=== PATIENT | male | born 1975 | race Caucasian/White ===

== ENCOUNTER 2025-02-09 00:54 | Inpatient (IN) ==
--- NOTE | 2025-02-09 01:10 | Emergency Department Note ---
Impression & Plan Altered mental state, Rhabdomyolysis, Elevated LFTs, Leukocytosis ED Provider Note CHIEF COMPLAINT: Confusion HISTORY OF PRESENTING ILLNESS: The patient is a 49-year-old male who arrives to the emergency department for evaluation of confusion. Patient was brought in by [facility], after he was found on room [address], walking down the middle of the road. PSP reports when they approached the patient, he was unaware of where he was, and how he got there. He reports he has not had anything to eat or drink over the last day. He states he was recently seen at [facility], however he is unaware why. PSP reports the patient believes that he was dropped off by a friend, however he is unsure. Patient reports no complaints upon arrival, he is able to answer questions, however slightly confused. His vital signs are currently stable, he is afebrile. REVIEW OF SYSTEMS: See HPI for pertinent positives and pertinent negatives. ALLERGIES: See below MEDICATIONS: See below PAST MEDICAL HISTORY: See below PHYSICAL EXAM: VITALS: Vitals are noted on the nurse's note and reviewed by myself. Vital signs stable. GENERAL: 49-year-old male, in no acute distress, nondiaphoretic. SKIN: The skin was without rashes, erythema, edema, or bruising. HEAD: Normocephalic atraumatic. EARS: External auditory canals clear, tympanic membranes pearly springer without erythema or effusion bilaterally. EYES: Pupils equal round and reactive to light and accommodation. Conjunctivae without injection, sclerae without icterus. Extraocular movements intact. No hemotympanum. NOSE: Patent, turbinates without inflammation or discharge. No sinus tenderness. No septal hematoma. MOUTH: Mucous membranes moist. Tonsils are not enlarged. Pharynx without erythema or exudate. Uvula midline. Airway patent. Tongue does not deviate. NECK: Supple without nuchal rigidity. No lymphadenopathy. Cervical spine is nontender. No JVD. HEART: Regular rate and rhythm without murmurs gallops or rubs. LUNGS: Clear to auscultation bilaterally without wheezes, rales or rhonchi. No retractions or accessory muscle use. ABDOMEN: Positive bowel sounds x 4. Soft, nontender, without masses or organomegaly. Taylor sign negative. No guarding or rebound tenderness. MUSCULOSKELETAL: No muscle atrophy, erythema, or edema noted. Normal gait. Strength 5/5 throughout. NEURO: Patient was alert and oriented to person place and time. No focal neurological deficits. DIFFERENTIAL DIAGNOSIS: Infection, hypoglycemia, electrolyte abnormalities, overdose, toxicologic, cardiac sources, intracerebral event, neurologic, trauma, as well as other pathologies. ED COURSE AND MEDICAL DECISION MAKING: HISTORY FROM INDEPENDENT HISTORIAN: PSP MEDICATIONS GIVEN: 1 L NSS bolus MONITOR: Continuous residential monitor: Order was placed for continuous residential monitor. Patient was placed on the residential monitor and continuous pulse ox. Patient was noted to be in normal sinus rhythm at an initial rate of 83 bpm per my interpretation. EKG: EKG was interpreted by myself as normal sinus rhythm at a rate of 81 bpm, no ST elevation or depression. No previous for comparison.. INTERPRETATION OF LABS: I interpreted the labs with full lab results as below in the lab section of this note. Pertinent lab results discussed in the MDM section below. INTERPRETATION OF IMAGING: Imaging studies were interpreted by myself and read by radiology as per the imaging section of this note. CHRONIC MEDICAL/SOCIAL CONDITIONS AFFECTING CARE: History of TBI MDM SUMMARY: The patient is a, 49-year-old male who arrives to the emergency department for evaluation of the above-stated complaint. Saline lock was established, lab values were obtained. CBC shows leukocytosis 15.45, no anemia. Lactate negative, ammonia negative. CMP shows elevated anion gap 16, BUN 37, creatinine 0.88. Glucose 138. AST 100, ALT 53, alkaline phosphatase 47. Total CK at 97, Pro-Charlie 0.09, TSH within normal limits. Tickborne panel pending. Initial Lyme negative. Urinalysis shows 2+ ketones, trace blood, no concerning signs of infection. UDS negative. Ethyl alcohol negative. Upper respiratory viral panel negative. CT, CTA imaging of the head as well as CTA imaging of the neck was obtained which per my interpretation shows no ICH, fracture, aneurysm, dissection, or concerning stenosis. Or other concerning findings. Patient vital signs stable upon arrival, during his stay, as he began to rest, he was requiring supplemental O2. It does appear the patient has rhabdomyolysis, as well as leukocytosis, and elevated LFTs. He was provided IV fluids. He has remained altered during his stay. I spoke with him regarding admission, which he was agreeable to. He states he does not currently feel well enough to go home. Patient was presented for admission to Dr. Arias from the [facility] hospitalist group. Dr. Arias agreed to evaluate and accept the patient under his care. Please refer to his documentation for further patient treatment. DIAGNOSIS: Altered mental status, leukocytosis, elevated LFTs, rhabdomyolysis The chart was completed utilizing [employer] Speech voice recognition software. Grammatical errors, random word insertions, pronoun errors, and incomplete sentences are an occasional consequence of this system due to software limitations, ambient noise, and hardware issues. Any formal questions or concerns about the content, text, or information contained within the body of this dictation should be directly addressed to the provider for clarification. Past Med/Surg History Problem List (Updated 02/14/25 @ 09:46 by MARIETTA Edward) Hypophosphatemia Leukocytosis (Acute) Elevated LFTs (Acute) Rhabdomyolysis (Acute) History of seizures Type 2 diabetes mellitus Altered mental state (Acute) Social History Smoking Status: Current every day smoker Tobacco Type: Cigarettes Second Hand Exposure: No; Do You Dip or Chew Tobacco: No; Hx Alcohol Use: No Hx Substance Use: Yes Last Used Substance: Unknown Preferred Language: Icelandic Communication Ability: Effective Manufacturing Group Leader Required: No Beliefs That Will Affect Care: None Current Living Situation: Homeless Feels Safe at Home: Yes Allergies Allergies Allergy/AdvReac Type Severity Reaction Status Date / Time No Known Allergies Allergy Verified 02/09/25 01:52 Home Meds Home Medications Medication Instructions Recorded Confirmed metformin 500 mg tablet 500 mg PO BIDM 02/09/25 02/09/25 Previous Rx's Medication Instructions Recorded gabapentin 600 mg tablet 600 mg PO TID #90 tabs 02/12/25 levetiracetam 500 mg tablet 500 mg PO BID #60 tabs 02/12/25 (Keppra) [id number] acid 0.4 1 tab PO QAM #30 tabs 02/12/25 mg-lycopene 300 mcg-lutein 250 mcg tablet ([employer]) thiamine HCl (vitamin B1) 100 mg 100 mg PO QAM #30 tabs 02/12/25 tablet Results & Data (ED) Vital Signs Vital Signs - 24 hr 02/09/25 01:03 Temperature 36.4 C L Temperature Source Oral Pulse Rate 83 Pulse Rhythm Regular Pulse Strength Normal Respiratory Rate 15 Respiratory Effort / Characteristics Non-Labored Spontaneous Respiratory Depth Normal Respiratory Pattern Regular Blood Pressure 145/89 H Blood Pressure Mean 107 Pulse Oximetry 100 Oxygen Delivery Method Room Air Sepsis Recent Fever Within 48 Hours No Sepsis New/Unexplained Change in Mental Status No Sepsis Action Taken by Nursing No Action Required Home Medications Current Medication List: was personally reviewed by me Laboratory Data Attestation: I reviewed the patient's lab results. 02/10/25 06:55 02/12/25 05:18 Lab Results 02/09/25 02/09/25 02/09/25 Range/Units 01:17 02:22 05:00 WBC 15.45 H (4.8-10.8) K/ul RBC 4.62 L (4.70-6.10) M/uL Hgb 14.1 (14.0-18.0) g/dL Hct 40.3 L (42.0-52.0) % MCV 87.2 (80.0-100.0) fL MCH 30.5 (25.0-34.0) pg MCHC 35.0 (32.0-36.0) g/dL RDW Std Deviation 41.5 (36.4-46.3) fL RDW Coeff of Vern 13.2 (11.5-14.5) % Plt Count 245 (130-400) K/uL MPV 9.0 L (9.4-12.4) fL Immature Gran % (Auto) 0.3 % Neut % (Auto) 78.0 % Lymph % (Auto) 16.3 % [place] % (Auto) 5.2 % Eos % (Auto) 0.1 % Baso % (Auto) 0.1 % Neut # (Auto) 12.03 H (1.40-6.50) K/uL Lymph # (Auto) 2.52 (1.20-3.40) K/uL [place] # (Auto) 0.81 H (0.11-0.59) K/uL Eos # (Auto) 0.02 (0.00-0.50) K/uL Baso # (Auto) 0.02 (0.00-0.20) K/uL Immature Gran # (Auto) 0.05 (0.01-0.20) K/uL VBG pH (7.36-7.41) VBG pCO2 (38-50) mmHg VBG pO2 mmHg VBG HCO3 mmol/L VBG O2 Saturation % VBG Base Excess mEq/L Sodium 133 L (136-145) mmol/L Potassium 4.6 (3.5-5.1) mmol/L Chloride 96 L (98-107) mmol/L Carbon Dioxide 21 (21-32) mmol/L Anion Gap 16 H (3-11) BUN 37 H (6-23) mg/dl Creatinine 0.88 (0.6-1.4) mg/dl Est Cr Clr Drug Dosing 98.3 ml/min eGFR 106.07 BUN/Creatinine Ratio 42.0 H (10-20) Glucose 114 H (70-99(Fasting)) mg/dl POC Glucose (70-99) mg/dl Estimat Average Glucose mg/dl Hemoglobin A1c (4.5-5.6) % Osmolality (280-300) mOsm/kg Lactate 1.0 (0.4-2.0) mmol/L Calcium 9.7 (8.6-10.3) mg/dl Phosphorus (2.5-4.9) mg/dl Magnesium (1.7-2.4) mg/dl Total Bilirubin 1.2 H (0.2-1.0) mg/dl AST 100 H (13-39) U/L ALT 53 H (7-52) U/L Alkaline Phosphatase 47 (34-104) U/L Ammonia 37.0 (18-72) umol/L Total Creatine Kinase (30-223) U/L Total Protein 8.7 H (6.0-8.3) gm/dl Albumin 4.5 (3.4-5.0) gm/dl Globulin 4.2 H (2.5-4.0) gm/dl Albumin/Globulin Ratio 1.1 (0.9-2) Procalcitonin (0-0.5) ng/ml TSH (0.300-4.500) uIu/ml Urine Color Yellow Urine Appearance Clear (Clear) Urine pH 5.0 (4.5-7.5) Ur Specific [place] 1.020 (1.000-1.030) Urine Protein 1+ H (Negative) Urine Glucose (UA) Negative (Negative) Urine Ketones 2+ H (Negative) Urine Blood Trace H (Negative) Urine Nitrite Negative (Negative) Urine Bilirubin Negative (Negative) Urine Urobilinogen Negative (Negative) Ur Leukocyte Esterase Negative (Negative) Urine WBC (Auto) 0-5 (0-5) /hpf Urine RBC (Auto) 0-2 (0-2) /hpf U Hyaline Cast (Auto) 3-5 H (0-2) /lpf U Epithel Cells (Auto) 0-2 (0-2) /hpf Urine Bacteria (Auto) None Seen (None Seen) Urine Comment Urine Opiates Screen Neg (Neg) Ur Methadone, Qual Neg (Neg) Urine Fentanyl Screen Neg (Neg) Urine Barbiturates Neg (Neg) Ur Phencyclidine (PCP) Neg (Neg) U Amphetamin/Meth Scrn Neg (Neg) MDMA (Ecstasy) Screen Neg (Neg) U Benzodiazepines Scrn Neg (Neg) Ur Cocaine Metabolite Neg (Neg) U Marijuana (THC) Screen Neg (Neg) Ethyl Alcohol mg/dL < 10.0 (<10.0) mg/dl Adenovirus (PCR) Not Detected (NotDetected) Anaplasma Smear A. phagocytophilum DNA (Negative) Babesia Smear Babesia microti DNA PCR (Not Detected) B. pertussis DNA (PCR) Not Detected (NotDetected) B.parapertussis DNA PCR Not Detected (NotDetected) Lyme Disease Screen (Negative) C. pneumoniae DNA (PCR) Not Detected (NotDetected) Coronavirus OC43 (PCR) Not Detected (NotDetected) Coronavirus HKU1 (PCR) Not Detected (NotDetected) Coronavirus 229E (PCR) Not Detected (NotDetected) SARS-CoV-2 (PCR) Not Detected (NotDetected) Coronavirus NL63 (PCR) Not Detected (NotDetected) Ehrlichia DNA (PCR) (Negative) Human Metapneumovir PCR Not Detected (NotDetected) Influenza Type A (PCR) Not Detected (NotDetected) Influenza Type B (PCR) Not Detected (NotDetected) M. pneumoniae (PCR) Not Detected (NotDetected) Parainfluenza 1 (PCR) Not Detected (NotDetected) Parainfluenza 2 (PCR) Not Detected (NotDetected) Parainfluenza 3 (PCR) Not Detected (NotDetected) Parainfluenza 4 (PCR) Not Detected (NotDetected) RSV (PCR) Not Detected (NotDetected) Entero/Rhino (PCR) Not Detected (NotDetected) 02/09/25 02/09/25 02/09/25 Range/Units 07:03 07:45 10:12 WBC (4.8-10.8) K/ul RBC (4.70-6.10) M/uL Hgb (14.0-18.0) g/dL Hct (42.0-52.0) % MCV (80.0-100.0) fL MCH (25.0-34.0) pg MCHC (32.0-36.0) g/dL RDW Std Deviation (36.4-46.3) fL RDW Coeff of Vern (11.5-14.5) % Plt Count (130-400) K/uL MPV (9.4-12.4) fL Immature Gran % (Auto) % Neut % (Auto) % Lymph % (Auto) % [place] % (Auto) % Eos % (Auto) % Baso % (Auto) % Neut # (Auto) (1.40-6.50) K/uL Lymph # (Auto) (1.20-3.40) K/uL [place] # (Auto) (0.11-0.59) K/uL Eos # (Auto) (0.00-0.50) K/uL Baso # (Auto) (0.00-0.20) K/uL Immature Gran # (Auto) (0.01-0.20) K/uL VBG pH (7.36-7.41) VBG pCO2 (38-50) mmHg VBG pO2 mmHg VBG HCO3 mmol/L VBG O2 Saturation % VBG Base Excess mEq/L Sodium (136-145) mmol/L Potassium (3.5-5.1) mmol/L Chloride (98-107) mmol/L Carbon Dioxide (21-32) mmol/L Anion Gap (3-11) BUN (6-23) mg/dl Creatinine (0.6-1.4) mg/dl Est Cr Clr Drug Dosing ml/min eGFR BUN/Creatinine Ratio (10-20) Glucose (70-99(Fasting)) mg/dl POC Glucose 138 H (70-99) mg/dl Estimat Average Glucose mg/dl Hemoglobin A1c (4.5-5.6) % Osmolality 291 (280-300) mOsm/kg Lactate (0.4-2.0) mmol/L Calcium (8.6-10.3) mg/dl Phosphorus (2.5-4.9) mg/dl Magnesium (1.7-2.4) mg/dl Total Bilirubin (0.2-1.0) mg/dl AST (13-39) U/L ALT (7-52) U/L Alkaline Phosphatase (34-104) U/L Ammonia (18-72) umol/L Total Creatine Kinase (30-223) U/L Total Protein (6.0-8.3) gm/dl Albumin (3.4-5.0) gm/dl Globulin (2.5-4.0) gm/dl Albumin/Globulin Ratio (0.9-2) Procalcitonin 0.09 (0-0.5) ng/ml TSH (0.300-4.500) uIu/ml Urine Color Urine Appearance (Clear) Urine pH (4.5-7.5) Ur Specific [place] (1.000-1.030) Urine Protein (Negative) Urine Glucose (UA) (Negative) Urine Ketones (Negative) Urine Blood (Negative) Urine Nitrite (Negative) Urine Bilirubin (Negative) Urine Urobilinogen (Negative) Ur Leukocyte Esterase (Negative) Urine WBC (Auto) (0-5) /hpf Urine RBC (Auto) (0-2) /hpf U Hyaline Cast (Auto) (0-2) /lpf U Epithel Cells (Auto) (0-2) /hpf Urine Bacteria (Auto) (None Seen) Urine Comment Urine Opiates Screen (Neg) Ur Methadone, Qual (Neg) Urine Fentanyl Screen (Neg) Urine Barbiturates (Neg) Ur Phencyclidine (PCP) (Neg) U Amphetamin/Meth Scrn (Neg) MDMA (Ecstasy) Screen (Neg) U Benzodiazepines Scrn (Neg) Ur Cocaine Metabolite (Neg) U Marijuana (THC) Screen (Neg) Ethyl Alcohol mg/dL (<10.0) mg/dl Adenovirus (PCR) (NotDetected) Anaplasma Smear See Comment A. phagocytophilum DNA Negative (Negative) Babesia Smear See Comment Babesia microti DNA PCR Not Detected (Not Detected) B. pertussis DNA (PCR) (NotDetected) B.parapertussis DNA PCR (NotDetected) Lyme Disease Screen Negative (Negative) C. pneumoniae DNA (PCR) (NotDetected) Coronavirus OC43 (PCR) (NotDetected) Coronavirus HKU1 (PCR) (NotDetected) Coronavirus 229E (PCR) (NotDetected) SARS-CoV-2 (PCR) (NotDetected) Coronavirus NL63 (PCR) (NotDetected) E[place]lich[place] DNA (PCR) Negative (Negative) Human Metapneumovir PCR (NotDetected) Influenza Type A (PCR) (NotDetected) Influenza Type B (PCR) (NotDetected) M. pneumoniae (PCR) (NotDetected) Parainfluenza 1 (PCR) (NotDetected) Parainfluenza 2 (PCR) (NotDetected) Parainfluenza 3 (PCR) (NotDetected) Parainfluenza 4 (PCR) (NotDetected) RSV (PCR) (NotDetected) Entero/Rhino (PCR) (NotDetected) 02/09/25 02/09/25 02/09/25 Range/Units 10:51 12:01 16:43 WBC (4.8-10.8) K/ul RBC (4.70-6.10) M/uL Hgb (14.0-18.0) g/dL Hct (42.0-52.0) % MCV (80.0-100.0) fL MCH (25.0-34.0) pg MCHC (32.0-36.0) g/dL RDW Std Deviation (36.4-46.3) fL RDW Coeff of Vern (11.5-14.5) % Plt Count (130-400) K/uL MPV (9.4-12.4) fL Immature Gran % (Auto) % Neut % (Auto) % Lymph % (Auto) % [place] % (Auto) % Eos % (Auto) % Baso % (Auto) % Neut # (Auto) (1.40-6.50) K/uL Lymph # (Auto) (1.20-3.40) K/uL [place] # (Auto) (0.11-0.59) K/uL Eos # (Auto) (0.00-0.50) K/uL Baso # (Auto) (0.00-0.20) K/uL Immature Gran # (Auto) (0.01-0.20) K/uL VBG pH 7.40 (7.36-7.41) VBG pCO2 41 (38-50) mmHg VBG pO2 65 mmHg VBG HCO3 25 mmol/L VBG O2 Saturation 94.2 % VBG Base Excess 0.5 mEq/L Sodium (136-145) mmol/L Potassium (3.5-5.1) mmol/L Chloride (98-107) mmol/L Carbon Dioxide (21-32) mmol/L Anion Gap (3-11) BUN (6-23) mg/dl Creatinine (0.6-1.4) mg/dl Est Cr Clr Drug Dosing ml/min eGFR BUN/Creatinine Ratio (10-20) Glucose (70-99(Fasting)) mg/dl POC Glucose 144 H 121 H (70-99) mg/dl Estimat Average Glucose mg/dl Hemoglobin A1c (4.5-5.6) % Osmolality (280-300) mOsm/kg Lactate (0.4-2.0) mmol/L Calcium (8.6-10.3) mg/dl Phosphorus 2.3 L (2.5-4.9) mg/dl Magnesium 1.9 (1.7-2.4) mg/dl Total Bilirubin (0.2-1.0) mg/dl AST (13-39) U/L ALT (7-52) U/L Alkaline Phosphatase (34-104) U/L Ammonia (18-72) umol/L Total Creatine Kinase 897 H (30-223) U/L Total Protein (6.0-8.3) gm/dl Albumin (3.4-5.0) gm/dl Globulin (2.5-4.0) gm/dl Albumin/Globulin Ratio (0.9-2) Procalcitonin (0-0.5) ng/ml TSH 0.786 (0.300-4.500) uIu/ml Urine Color Urine Appearance (Clear) Urine pH (4.5-7.5) Ur Specific [place] (1.000-1.030) Urine Protein (Negative) Urine Glucose (UA) (Negative) Urine Ketones (Negative) Urine Blood (Negative) Urine Nitrite (Negative) Urine Bilirubin (Negative) Urine Urobilinogen (Negative) Ur Leukocyte Esterase (Negative) Urine WBC (Auto) (0-5) /hpf Urine RBC (Auto) (0-2) /hpf U Hyaline Cast (Auto) (0-2) /lpf U Epithel Cells (Auto) (0-2) /hpf Urine Bacteria (Auto) (None Seen) Urine Comment Urine Opiates Screen (Neg) Ur Methadone, Qual (Neg) Urine Fentanyl Screen (Neg) Urine Barbiturates (Neg) Ur Phencyclidine (PCP) (Neg) U Amphetamin/Meth Scrn (Neg) MDMA (Ecstasy) Screen (Neg) U Benzodiazepines Scrn (Neg) Ur Cocaine Metabolite (Neg) U Marijuana (THC) Screen (Neg) Ethyl Alcohol mg/dL (<10.0) mg/dl Adenovirus (PCR) (NotDetected) Anaplasma Smear A. phagocytophilum DNA (Negative) Babesia Smear Babesia microti DNA PCR (Not Detected) B. pertussis DNA (PCR) (NotDetected) B.parapertussis DNA PCR (NotDetected) Lyme Disease Screen (Negative) C. pneumoniae DNA (PCR) (NotDetected) Coronavirus OC43 (PCR) (NotDetected) Coronavirus HKU1 (PCR) (NotDetected) Coronavirus 229E (PCR) (NotDetected) SARS-CoV-2 (PCR) (NotDetected) Coronavirus NL63 (PCR) (NotDetected) [place] DNA (PCR) (Negative) Human Metapneumovir PCR (NotDetected) Influenza Type A (PCR) (NotDetected) Influenza Type B (PCR) (NotDetected) M. pneumoniae (PCR) (NotDetected) Parainfluenza 1 (PCR) (NotDetected) Parainfluenza 2 (PCR) (NotDetected) Parainfluenza 3 (PCR) (NotDetected) Parainfluenza 4 (PCR) (NotDetected) RSV (PCR) (NotDetected) Entero/Rhino (PCR) (NotDetected) 02/09/25 02/10/25 02/10/25 Range/Units 20:18 06:55 08:00 WBC 7.08 (4.8-10.8) K/ul RBC 3.83 L (4.70-6.10) M/uL Hgb 11.9 L (14.0-18.0) g/dL Hct 33.5 L (42.0-52.0) % MCV 87.5 (80.0-100.0) fL MCH 31.1 (25.0-34.0) pg MCHC 35.5 (32.0-36.0) g/dL RDW Std Deviation 41.0 (36.4-46.3) fL RDW Coeff of Vern 13.0 (11.5-14.5) % Plt Count 188 (130-400) K/uL MPV 9.3 L (9.4-12.4) fL Immature Gran % (Auto) 0.1 % Neut % (Auto) 49.7 % Lymph % (Auto) 42.7 % [place] % (Auto) 6.8 % Eos % (Auto) 0.4 % Baso % (Auto) 0.3 % Neut # (Auto) 3.52 (1.40-6.50) K/uL Lymph # (Auto) 3.02 (1.20-3.40) K/uL [place] # (Auto) 0.48 (0.11-0.59) K/uL Eos # (Auto) 0.03 (0.00-0.50) K/uL Baso # (Auto) 0.02 (0.00-0.20) K/uL Immature Gran # (Auto) 0.01 (0.01-0.20) K/uL VBG pH (7.36-7.41) VBG pCO2 (38-50) mmHg VBG pO2 mmHg VBG HCO3 mmol/L VBG O2 Saturation % VBG Base Excess mEq/L Sodium 138 (136-145) mmol/L Potassium 3.7 (3.5-5.1) mmol/L Chloride 106 (98-107) mmol/L Carbon Dioxide 27 (21-32) mmol/L Anion Gap 5 (3-11) BUN 20 (6-23) mg/dl Creatinine 0.59 L (0.6-1.4) mg/dl Est Cr Clr Drug Dosing 149.4 ml/min eGFR 119.68 BUN/Creatinine Ratio 33.9 H (10-20) Glucose 194 H (70-99(Fasting)) mg/dl POC Glucose 149 H 232 H (70-99) mg/dl Estimat Average Glucose 171 mg/dl Hemoglobin A1c 7.6 H (4.5-5.6) % Osmolality (280-300) mOsm/kg Lactate (0.4-2.0) mmol/L Calcium 8.6 (8.6-10.3) mg/dl Phosphorus 2.1 L (2.5-4.9) mg/dl Magnesium 1.8 (1.7-2.4) mg/dl Total Bilirubin 0.3 D (0.2-1.0) mg/dl AST 46 H (13-39) U/L ALT 33 (7-52) U/L Alkaline Phosphatase 39 (34-104) U/L Ammonia (18-72) umol/L Total Creatine Kinase 286 H (30-223) U/L Total Protein 6.3 D (6.0-8.3) gm/dl Albumin 3.2 L (3.4-5.0) gm/dl Globulin 3.1 (2.5-4.0) gm/dl Albumin/Globulin Ratio 1.0 (0.9-2) Procalcitonin (0-0.5) ng/ml TSH (0.300-4.500) uIu/ml Urine Color Urine Appearance (Clear) Urine pH (4.5-7.5) Ur Specific [place] (1.000-1.030) Urine Protein (Negative) Urine Glucose (UA) (Negative) Urine Ketones (Negative) Urine Blood (Negative) Urine Nitrite (Negative) Urine Bilirubin (Negative) Urine Urobilinogen (Negative) Ur Leukocyte Esterase (Negative) Urine WBC (Auto) (0-5) /hpf Urine RBC (Auto) (0-2) /hpf U Hyaline Cast (Auto) (0-2) /lpf U Epithel Cells (Auto) (0-2) /hpf Urine Bacteria (Auto) (None Seen) Urine Comment Urine Opiates Screen (Neg) Ur Methadone, Qual (Neg) Urine Fentanyl Screen (Neg) Urine Barbiturates (Neg) Ur Phencyclidine (PCP) (Neg) U Amphetamin/Meth Scrn (Neg) MDMA (Ecstasy) Screen (Neg) U Benzodiazepines Scrn (Neg) Ur Cocaine Metabolite (Neg) U Marijuana (THC) Screen (Neg) Ethyl Alcohol mg/dL (<10.0) mg/dl Adenovirus (PCR) (NotDetected) Anaplasma Smear A. phagocytophilum DNA (Negative) Babesia Smear Babesia microti DNA PCR (Not Detected) B. pertussis DNA (PCR) (NotDetected) B.parapertussis DNA PCR (NotDetected) Lyme Disease Screen (Negative) C. pneumoniae DNA (PCR) (NotDetected) Coronavirus OC43 (PCR) (NotDetected) Coronavirus HKU1 (PCR) (NotDetected) Coronavirus 229E (PCR) (NotDetected) SARS-CoV-2 (PCR) (NotDetected) Coronavirus NL63 (PCR) (NotDetected) [place] DNA (PCR) (Negative) Human Metapneumovir PCR (NotDetected) Influenza Type A (PCR) (NotDetected) Influenza Type B (PCR) (NotDetected) M. pneumoniae (PCR) (NotDetected) Parainfluenza 1 (PCR) (NotDetected) Parainfluenza 2 (PCR) (NotDetected) Parainfluenza 3 (PCR) (NotDetected) Parainfluenza 4 (PCR) (NotDetected) RSV (PCR) (NotDetected) Entero/Rhino (PCR) (NotDetected) 02/10/25 Range/Units 12:33 WBC (4.8-10.8) K/ul RBC (4.70-6.10) M/uL Hgb (14.0-18.0) g/dL Hct (42.0-52.0) % MCV (80.0-100.0) fL MCH (25.0-34.0) pg MCHC (32.0-36.0) g/dL RDW Std Deviation (36.4-46.3) fL RDW Coeff of Vern (11.5-14.5) % Plt Count (130-400) K/uL MPV (9.4-12.4) fL Immature Gran % (Auto) % Neut % (Auto) % Lymph % (Auto) % [place] % (Auto) % Eos % (Auto) % Baso % (Auto) % Neut # (Auto) (1.40-6.50) K/uL Lymph # (Auto) (1.20-3.40) K/uL [place] # (Auto) (0.11-0.59) K/uL Eos # (Auto) (0.00-0.50) K/uL Baso # (Auto) (0.00-0.20) K/uL Immature Gran # (Auto) (0.01-0.20) K/uL VBG pH (7.36-7.41) VBG pCO2 (38-50) mmHg VBG pO2 mmHg VBG HCO3 mmol/L VBG O2 Saturation % VBG Base Excess mEq/L Sodium (136-145) mmol/L Potassium (3.5-5.1) mmol/L Chloride (98-107) mmol/L Carbon Dioxide (21-32) mmol/L Anion Gap (3-11) BUN (6-23) mg/dl Creatinine (0.6-1.4) mg/dl Est Cr Clr Drug Dosing ml/min eGFR BUN/Creatinine Ratio (10-20) Glucose (70-99(Fasting)) mg/dl POC Glucose 103 H (70-99) mg/dl Estimat Average Glucose mg/dl Hemoglobin A1c (4.5-5.6) % Osmolality (280-300) mOsm/kg Lactate (0.4-2.0) mmol/L Calcium (8.6-10.3) mg/dl Phosphorus (2.5-4.9) mg/dl Magnesium (1.7-2.4) mg/dl Total Bilirubin (0.2-1.0) mg/dl AST (13-39) U/L ALT (7-52) U/L Alkaline Phosphatase (34-104) U/L Ammonia (18-72) umol/L Total Creatine Kinase (30-223) U/L Total Protein (6.0-8.3) gm/dl Albumin (3.4-5.0) gm/dl Globulin (2.5-4.0) gm/dl Albumin/Globulin Ratio (0.9-2) Procalcitonin (0-0.5) ng/ml TSH (0.300-4.500) uIu/ml Urine Color Urine Appearance (Clear) Urine pH (4.5-7.5) Ur Specific [place] (1.000-1.030) Urine Protein (Negative) Urine Glucose (UA) (Negative) Urine Ketones (Negative) Urine Blood (Negative) Urine Nitrite (Negative) Urine Bilirubin (Negative) Urine Urobilinogen (Negative) Ur Leukocyte Esterase (Negative) Urine WBC (Auto) (0-5) /hpf Urine RBC (Auto) (0-2) /hpf U Hyaline Cast (Auto) (0-2) /lpf U Epithel Cells (Auto) (0-2) /hpf Urine Bacteria (Auto) (None Seen) Urine Comment Urine Opiates Screen (Neg) Ur Methadone, Qual (Neg) Urine Fentanyl Screen (Neg) Urine Barbiturates (Neg) Ur Phencyclidine (PCP) (Neg) U Amphetamin/Meth Scrn (Neg) MDMA (Ecstasy) Screen (Neg) U Benzodiazepines Scrn (Neg) Ur Cocaine Metabolite (Neg) U Marijuana (THC) Screen (Neg) Ethyl Alcohol mg/dL (<10.0) mg/dl Adenovirus (PCR) (NotDetected) Anaplasma Smear A. phagocytophilum DNA (Negative) Babesia Smear Babesia microti DNA PCR (Not Detected) B. pertussis DNA (PCR) (NotDetected) B.parapertussis DNA PCR (NotDetected) Lyme Disease Screen (Negative) C. pneumoniae DNA (PCR) (NotDetected) Coronavirus OC43 (PCR) (NotDetected) Coronavirus HKU1 (PCR) (NotDetected) Coronavirus 229E (PCR) (NotDetected) SARS-CoV-2 (PCR) (NotDetected) Coronavirus NL63 (PCR) (NotDetected) Ehrlichia DNA (PCR) (Negative) Human Metapneumovir PCR (NotDetected) Influenza Type A (PCR) (NotDetected) Influenza Type B (PCR) (NotDetected) M. pneumoniae (PCR) (NotDetected) Parainfluenza 1 (PCR) (NotDetected) Parainfluenza 2 (PCR) (NotDetected) Parainfluenza 3 (PCR) (NotDetected) Parainfluenza 4 (PCR) (NotDetected) RSV (PCR) (NotDetected) Entero/Rhino (PCR) (NotDetected) Administered Medications Discontinued Medications Enoxaparin Sodium (Enoxaparin Inj 40 Mg/0.4 Ml Syr) 40 mg SQ QPM ROZINA Stop: 03/11/25 20:59 Last Admin: 02/11/25 20:20 Dose: 40 mg Documented By: [facility] Admin: 02/10/25 20:07 Dose: 40 mg Documented By: [facility] Admin: 02/09/25 21:33 Dose: 40 mg Documented By: [facility] Gabapentin (Gabapentin 600 Mg Tab) 600 mg PO TID ROZINA Stop: 03/12/25 13:59 Last Admin: 02/12/25 14:00 Dose: 600 mg Documented By: [facility] Admin: 02/12/25 08:28 Dose: 600 mg Documented By: [facility] Admin: 02/11/25 20:21 Dose: 600 mg Documented By: [facility] Admin: 02/11/25 13:27 Dose: 600 mg Documented By: [facility] Admin: 02/11/25 08:56 Dose: 600 mg Documented By: [facility] Admin: 02/10/25 20:06 Dose: 600 mg Documented By: [facility] Admin: 02/10/25 13:36 Dose: 600 mg Documented By: [facility] Gadobutrol (Gadobutrol 65ml Vial) 6.5 ml IV ONCE ONE Stop: 02/09/25 23:32 Last Admin: 02/09/25 23:31 Dose: 6.5 ml Documented By: HAYES Sodium Chloride (Nss) 1,000 mls @ 999 mls/hr IV .Q1H1M ONE Stop: 02/09/25 02:10 Last Infusion: 02/09/25 03:06 Dose: Infused Documented By: [facility] Admin: 02/09/25 01:40 Dose: 999 mls/hr Documented By: [facility] Sodium Chloride (Nss) 1,000 mls @ 999 mls/hr IV .Q1H1M ONE Stop: 02/09/25 04:18 Last Infusion: 02/09/25 04:24 Dose: Infused Documented By: [facility] Admin: 02/09/25 03:21 Dose: 999 mls/hr Documented By: [facility] Thiamine HCl 500 mg/ Sodium (Chloride) 55 mls @ 110 mls/hr IV Q8H ROZINA Stop: 02/11/25 10:29 Last Infusion: 02/11/25 09:50 Dose: Infused Documented By: [facility]STIC[facility] APPLICATOR Admin: 02/11/25 08:58 Dose: 110 mls/hr Documented By: PESTICIDE APPLICATOR Infusion: 02/11/25 03:40 Dose: Infused Documented By: Admin: 02/11/25 02:42 Dose: 110 mls/hr Documented By: Infusion: 02/10/25 19:33 Dose: Infused Documented By: Admin: 02/10/25 18:05 Dose: 110 mls/hr Documented By: Infusion: 02/10/25 10:00 Dose: Infused Documented By: Admin: 02/10/25 09:30 Dose: 110 mls/hr Documented By: Infusion: 02/10/25 02:04 Dose: Infused Documented By: mcl Admin: 02/10/25 01:28 Dose: 110 mls/hr Documented By: mcl Infusion: 02/09/25 18:40 Dose: Infused Documented By: Admin: 02/09/25 17:42 Dose: 110 mls/hr Documented By: CRISTÓBAL Thiamine HCl 500 mg/ Sodium (Chloride) 55 mls @ 210 mls/hr IV ONE ONE Stop: 02/09/25 09:35 Last Infusion: 02/09/25 12:27 Dose: Infused Documented By: Admin: 02/09/25 12:01 Dose: 210 mls/hr Documented By: CRISTÓBAL Dextrose/Lactated Ringer's (D5w And Lactated Ringers) 1,000 mls @ 125 mls/hr IV .Q8H ROZINA Stop: 02/12/25 10:22 Last Admin: 02/10/25 13:41 Dose: Not Given Documented By: Infusion: 02/10/25 13:41 Dose: Infused Documented By: Admin: 02/10/25 06:32 Dose: 125 mls/hr Documented By: mcl Infusion: 02/10/25 06:31 Dose: Infused Documented By: mcl Infusion: 02/10/25 00:01 Dose: 125 mls/hr Documented By: mcl Infusion: 02/09/25 23:34 Dose: 0 mls/hr Documented By: mcl Admin: 02/09/25 21:33 Dose: 125 mls/hr Documented By: mcl Infusion: 02/09/25 21:30 Dose: Infused Documented By: mcl Infusion: 02/09/25 18:39 Dose: 125 mls/hr Documented By: Infusion: 02/09/25 17:47 Dose: 0 mls/hr Documented By: Admin: 02/09/25 12:23 Dose: 125 mls/hr Documented By: CRISTÓBAL Insulin Aspart (Insulin Aspart Per Unit Charge) 0 units SC ACHS ROZINA Stop: 03/11/25 11:29 Last Admin: 02/12/25 13:58 Dose: Not Given Documented By: Admin: 02/12/25 08:34 Dose: 5 units Documented By: ELIA Co-signed By: NERY Admin: 02/11/25 20:15 Dose: Not Given Documented By: Admin: 02/11/25 17:40 Dose: 4 units Documented By: ELIA Co-signed By: reyes Admin: 02/11/25 13:26 Dose: 2 units Documented By: ELIA Co-signed By: PRASHANT Admin: 02/11/25 09:13 Dose: 6 units Documented By: ELIA Co-signed By: reyes Admin: 02/10/25 20:18 Dose: Not Given Documented By: MARY Co-signed By: cristopher Admin: 02/10/25 18:16 Dose: 4 units Documented By: ALEXANDRIA Co-signed By: ROSE Admin: 02/10/25 13:36 Dose: 4 units Documented By: ALEXANDRIA Co-signed By: JACKIE Admin: 02/10/25 09:29 Dose: 7 units Documented By: ALEXANDRIA Co-signed By: DORIAN Admin: 02/09/25 21:34 Dose: 1 units Documented By: zhen Co-signed By: VINH Admin: 02/09/25 17:56 Dose: 4 units Documented By: CRISTÓBAL Co-signed By: JACKIE Admin: 02/09/25 13:01 Dose: 4 units Documented By: CRISTÓBAL Co-signed By: JACKIE Insulin Glargine (Lantus Per Unit Charge) 10 units SQ QAM ROZINA Stop: 03/12/25 09:44 Last Admin: 02/10/25 09:34 Dose: 10 units Documented By: ALEXANDRIA Co-signed By: DORIAN Insulin Glargine (Lantus Per Unit Charge) 5 units SQ QAM ROZINA Stop: 03/13/25 08:59 Last Admin: 02/12/25 08:35 Dose: 5 units Documented By: ELIA Co-signed By: NERY Admin: 02/11/25 09:13 Dose: 5 units Documented By: ELIA Co-signed By: reyes Ioversol (Optiray 320 125ml) 112 ml IV ONCE ONE Stop: 02/09/25 08:21 Last Admin: 02/09/25 08:21 Dose: 112 ml Documented By: FANNY Levetiracetam (Levetiracetam 500 Mg/5 Ml Vial) 500 mg IV Q12H [facility] Stop: 03/11/25 14:59 Last Admin: 02/10/25 02:12 Dose: 500 mg Documented By: [facility] Admin: 02/09/25 16:05 Dose: 500 mg Documented By: lissa Levetiracetam (Levetiracetam 500 Mg Tab) 500 mg PO BID [facility] Stop: 03/12/25 20:59 Last Admin: 02/12/25 08:28 Dose: 500 mg Documented By: PESTIC[facility] APPLICATOR Admin: 02/11/25 20:21 Dose: 500 mg Documented By: [facility] Admin: 02/11/25 08:56 Dose: 500 mg Documented By: PESTICIDE APPLICATOR Admin: 02/10/25 20:06 Dose: 500 mg Documented By: [facility] Multivitamins/Minerals (Cerovite Adv Formula Tab) 1 tab PO QAM [facility] Stop: 03/12/25 13:14 Last Admin: 02/12/25 08:28 Dose: 1 tab Documented By: [facility] Admin: 02/11/25 08:56 Dose: 1 tab Documented By: [facility] Admin: 02/10/25 13:36 Dose: 1 tab Documented By: ALEXANDRIA Potassium Phosphate (Pot Phosphate Monobasic W/ Sod Tab) 1 tab PO QID [facility] Stop: 02/09/25 21:01 Last Admin: 02/09/25 21:34 Dose: 1 tab Documented By: [facility] Admin: 02/09/25 17:41 Dose: 1 tab Documented By: CRISTÓBAL Potassium Phosphate (Pot Phosphate Monobasic W/ Sod Tab) 1 tab PO QID [facility] Stop: 02/10/25 21:01 Last Admin: 02/10/25 20:06 Dose: 1 tab Documented By: [facility] Admin: 02/10/25 18:06 Dose: 1 tab Documented By: Admin: 02/10/25 13:36 Dose: 1 tab Documented By: ALEXANDRIA Thiamine HCl (Thiamine Hcl 100 Mg Tab) 100 mg PO QAM ROZINA Stop: 03/14/25 08:59 Last Admin: 02/12/25 08:28 Dose: 100 mg Documented By: PESTICIDE APPLICATOR Imaging Data Attestation: I personally reviewed and interpreted this imaging study as follows: Discharge Plan Visit Data Chief Complaint: Confusion Stated Complaint: PSP FOUND ON [address] IN [address],CONFUSED ED Provider: Ethel Francis ED Midlevel Provider: Socorro Faye Discharge Problem: Altered mental state, Rhabdomyolysis, Elevated LFTs, Leukocytosis Patient Disposition: Admitted As Inpatient Condition: Fair Discharge Instructions Interventions: ED Discharge Assessment Last Done: 02/09/25 09:30
[2025-02-09 01:31] LABS: Hematocrit (blood only) 40.3 % (42.0-52.0); Hemoglobin 14.1 g/dL (14.0-18.0); Immature Granulocytes # (auto) 0.05 K/uL (0.01-0.20); Immature Granulocytes % (auto) 0.3 %; Mean Corpuscular Hemoglobin 30.5 pg (25.0-34.0); Mean Corpuscular Volume 87.2 fL (80.0-100.0); Platelet Count 245 K/uL (130-400); RDW Standard Deviation 41.5 fL (36.4-46.3); Red Blood Count 4.62 M/uL (4.70-6.10); White Blood Count 15.45 K/ul (4.8-10.8)
[2025-02-09] MEDS: SODIUM CHLORIDE 0.9% 1,000 ML IV ONE ×2 (01:40→03:21)
[2025-02-09 01:55] LABS: Alanine Aminotransferase 53.0 U/L (7-52); Albumin Globulin Ratio 1.1 (0.9-2); Albumin Level 4.5 gm/dl (3.4-5.0); Alkaline Phosphatase 47.0 U/L (34-104); Anion Gap 16.0 (3-11); Bilirubin,Total 1.2 mg/dl (0.2-1.0); Blood Urea Nitrogen 37.0 mg/dl (6-23); Calcium 9.7 mg/dl (8.6-10.3); Carbon Dioxide 21.0 mmol/L (21-32); Chloride 96.0 mmol/L (98-107); Creatinine Clr Calc Pharmacy 98.3 ml/min; Globulin 4.2 gm/dl (2.5-4.0); Glucose 114.0 mg/dl (70-99(Fasting)); Potassium 4.6 mmol/L (3.5-5.1); Sodium 133.0 mmol/L (136-145); Total Protein 8.7 gm/dl (6.0-8.3)
--- NOTE | 2025-02-09 02:25 | CT Scan Report ---
EXAM: CT head/brain wo con CLINICAL HISTORY: confusion TECHNIQUE: Multiple axial images were obtained from the skull base to the vertex without contrast. The CT scan was performed according to ALARA (as low as reasonably achievable) principles. COMPARISON: None. FINDINGS: The brain demonstrates normal morphology, attenuation, and volume for age. There is no evidence of space-occupying lesion, hemorrhage, edema, mass effect, midline shift, extra-axial collection, or hydrocephalus. The ventricles, sulci, and basal cisterns are symmetric and normal in size and configuration. Martin-white matter differentiation is preserved. The visualized paranasal sinuses and mastoid air cells are well aerated. The orbital contents are within normal limits. The bony structures are intact. IMPRESSION: 1. No evidence of acute intracranial abnormality is demonstrated. Electronically signed by Rodrigo Noble 02-09-2025 02:24 AM
[2025-02-09 03:41] LABS: Chlamydia pneumoniae PCR Not Detected (NotDetected); Coronavirus 229E PCR Not Detected (NotDetected); Coronavirus CoV-2 (COVID19)PCR Not Detected (NotDetected); Coronavirus HKU1 PCR Not Detected (NotDetected); Coronavirus NL63 PCR Not Detected (NotDetected); Coronavirus OC43PCR Not Detected (NotDetected); Human Metapneumovirus PCR Not Detected (NotDetected); Parainfluenza Virus 1 PCR Not Detected (NotDetected); Parainfluenza Virus 2 PCR Not Detected (NotDetected); Parainfluenza Virus 3 PCR Not Detected (NotDetected); Parainfluenza Virus 4 PCR Not Detected (NotDetected); Respiratory Syncytial VirusPCR Not Detected (NotDetected); Rhinovirus/Enterovirus PCR Not Detected (NotDetected)
[2025-02-09 05:24] LABS: Appearance Urine Clear (Clear); Bacteria Urine Automated None Seen (None Seen); Epithelial Cell Urine Auto 0-2 /hpf (0-2); Glucose Urine UA Negative (Negative); RBC Urine Automated 0-2 /hpf (0-2); WBC Urine Automated 0-5 /hpf (0-5)
[2025-02-09 05:49] LABS: Amphetamines+Metham, Urine Neg (Neg); MDMA (Ecstacy), Urine Neg (Neg); Marijuana, Urine Neg (Neg)
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
[2025-02-09] MEDS: OPTIRAY 320 125ml IV ONE (08:21)
[2025-02-09 08:37] LABS: Procalcitonin 0.09 ng/ml (0-0.5)
--- NOTE | 2025-02-09 08:44 | CT Scan Report ---
CT angio head w con CLINICAL HISTORY: 49 years-old Male with TIA?. Acute strokelike symptoms COMPARISON STUDY: Head CT same day TECHNIQUE: Following the IV administration of 112 cc of Optiray, CT angiogram of the brain was perfor med from the skull base to the vertex. Images are reviewed in the axial, sagittal, and coronal planes . 3-D MIPS images are created and assessed. IV contrast was administered without complication. All me asurements were obtained according to NASCET criteria. A dose lowering technique was utilized adherin g to the principles of ALARA. CT DOSE: 516.56 mGy.cm FINDINGS: CT BRAIN: Dictated separately and several hours earlier. CT ANGIOGRAM OF THE BRAIN: The imaged bilateral internal carotid arteries are patent. The bilateral anterior and middle cerebral arteries are also patent. The vertebrobasilar system and posterior cerebral arteries are widely brizuela nt. There is no aneurysm, high-grade stenosis, or proximal branch occlusion identified. Dural sinuses appear patent. IMPRESSION: Unremarkable CTA of the head. ACT 112: Negative or not required by law. The above report was generated using voice recognition software. It may contain grammatical, syntax o r spelling errors. Electronically signed by: Jorge Luis Henning M.D. 02/09/2025 8:41 AM
--- NOTE | 2025-02-09 08:47 | CT Scan Report ---
CT angio neck with con CLINICAL HISTORY: 49 years-old Male with TIA?. Acute stroke like symptoms COMPARISON STUDY: CTA head of same day TECHNIQUE: Following the IV administration of 112 mL of Optiray, CT angiogram of the neck was perform ed from the aortic arch to the skull base. Images are reviewed in the axial, sagittal, and coronal pl anes. 3-D MIPS images are created and assessed. IV contrast was administered without complication. Al l measurements were calculated based on NASCET criteria. A dose lowering technique was utilized adhe ring to the principles of ALARA. FINDINGS: Four-vessel morphology of the thoracic aorta arch. There is patency of the innominate and imaged subc lavian arteries. The common carotid arteries are widely patent. There is mild atherosclerosis of the carotid bulbs causing less than 50% stenosis bilaterally. The internal carotid arteries are patent. D ominant right vertebral artery. The vertebral arteries are patent bilaterally. No aneurysm, dissectio n, high-grade stenosis or arterial occlusion. Lung apices are clear. Mild pulmonary emphysema. Unremarkable soft tissues. Degenerative changes of t he cervical spine causing multilevel neural foraminal narrowing. Disc osteophyte complexes most prono unced at C5-C6.. IMPRESSION: 1. No aneurysm, dissection, high-grade stenosis or arterial occlusion. 2. Atherosclerosis of the carotid bulbs causes less than 50% stenosis bilaterally. ACT 112: Negative or not required by law. The above report was generated using voice recognition software. It may contain grammatical, syntax o r spelling errors. Electronically signed by: Jorge Luis Henning M.D. 02/09/2025 8:46 AM
[2025-02-09 09:03] LABS: Lyme Screen Rflx Confirmation Negative (Negative)
--- NOTE | 2025-02-09 09:42 | XRay Report ---
XR chest 1V portable CLINICAL HISTORY: Altered mental status. COMPARISON STUDY: No previous studies for comparison. FINDINGS: Incidental note is made of screws within the proximal left humerus and an old left eighth r ib fracture. Lung volumes are normal. Lungs are clear. There is no pneumothorax or pleural effusion. Cardiac size is normal. Mediastinal contours are normal. There is no evidence for pulmonary edema. Th ere is upper lobe predominant emphysema. IMPRESSION: 1. No acute cardiopulmonary findings. 2. Upper lobe predominant emphysema. ACT 112: Negative or not required by law. Electronically signed by: Xavier Styles M.D. 02/09/2025 9:41 AM
[2025-02-09] MEDS ORDERED: GLUCOSE 10 TAB/TUBE PO PRN (10:23)
[2025-02-09] MEDS ORDERED: GLUCAGON FOR INJ 1 MG VIAL SQ PRN (10:23)
[2025-02-09] MEDS ORDERED: CARBOHYDRATES FOR HYPOGLYCEMIA PO PRN (10:23)
[2025-02-09] MEDS ORDERED: GLUCOSE 40% GEL 15 GM TUBE PO PRN (10:23)
[2025-02-09] MEDS ORDERED: DEXTROSE 50% 50 ML SYRINGE IV PRN (10:23)
[2025-02-09 11:18] LABS: Base Excess VBG 0.5 mEq/L; HCO3 VBG 25 mmol/L; Oxygen Saturation VBG 94.2 %; PCO2 VBG 41 mmHg (38-50); PO2 VBG 65 mmHg; pH VBG 7.40 (7.36-7.41)
[2025-02-09 11:43] LABS: Creatine Kinase 897.0 U/L (30-223); Magnesium 1.9 mg/dl (1.7-2.4)
[2025-02-09 11:58] LABS: Thyroid Stimulating Hormone 0.786 uIu/ml (0.300-4.500)
[2025-02-09] MEDS: THIAMINE HCL 500 MG in SODIUM CHLORIDE 0.9% 50 ML IV ONE (12:01)
--- NOTE | 2025-02-09 12:17 | Psychiatric Consultation ---
Date of Consultation February 09, 2025 Impression / Recommendations Impression Diagnostically unclear, very somnolence and with confusion. Differential remains broad including substance-withdrawal (though admission UDS was negative but increased sedation in withdrawal state would be seen with cocaine/stimulant which often is only seen in first few days on UDS and AST/ALT ratio concerning for possible alcohol use) vs primary psychiatric presentation (unlikely but certainly could have psychosis contributing to presentation but no clear delusions or depression vocalized) vs altered mental status from medical cause like delirium driven by electrolyte abnormality given poor intake vs infectious (elevated WBC) vs inflammatory vs trauma. For now would not start any scheduled psychiatric medications until sedation lessens. Overall, I spent a total of 60 minutes with this case including review of chart records, review of labwork, direct evaluation of the patient at bedside, counseling the patient, discussion of the patient with the hospitalist provider, discussion with the psychiatric liason during clinical rounds and documentation in the electronic health record. (1) Altered mental state: (2) Type 2 diabetes mellitus: Plan -Hold off on starting any scheduled psychiatric medications at this time -Continue medical workup to rule out and treat any underlying causes contributing to potential delirium, avoid or limit use of deliriogenic medications (benzodiazepines, opioids, anticholinergics) -Continue with delirium prevention measures: raising blinds during the day, closing at night, frequent re-orientation, contact with family/friends, explaining procedures/nursing care measures prior to physical contact, correct any hearing and visual impairments -Consider AWSS/thiamine and folic acid given concern for possible alcohol use given elevated AST >> ALT -Doesn't have decision making capacity to leave AMA given his current state of confusion -We've requested records from [facility] and Dr. Barrios who prescribed psychiatric medication in the past -For behavioral emergency: haldol 5mg BID prn for agitation OR lorazepam 1mg IM or IV TID prn if concern for alcohol withdrawal Psych History Identifying Data Buck Mirza is a 49 year old male with a history of TBI, T2DM, and possible psychosis or bipolar affective disorder given past psychiatric medications who presents to the ER with altered mental state after police [place] [address] Psychiatry consulted for altered mental status and possible psychiatric contribution to presentation. Chief Complaint "I got lost last night". History of Present Illness Buck was brought to the emergency department by state police [place]. Per hospitalist admission H&P he cannot recall how he got on the highway or when he last ate or drank. He fell asleep easily and reported having been at [facility] but appears he left without being seen. Review of prior medications notable for lithium and risperidone on [facility] medication list and external pharmacy review notable for history of Haldol and mirtazapine prescribed by outpatient psychiatry in the past. Also previous history of citalopram and prazosin scrips. He denied recent substance use on admission though did have a prior prescription of Sublocade. Today in meeting with him he is very sedated wakes to verbal prompting but quickly falls back asleep. Reports his mood is "not too good" and reflects on that "I got lost last night and ended up in [place] normally I am in [place]". He denies any suicidal thoughts nor homicidal thoughts. He does not recall having ever seen a psychiatrist through [facility], [facility] nor ever being seen at [facility] but consents to us trying to get records from these facilities. He becomes somnolent again and is unable to participate any further with interview. Social history notable for being currently unhoused, unclear if he's been staying in a residential in [facility]. Allergies Allergy/AdvReac Type Severity Reaction Status Date / Time No Known Allergies Allergy Verified 02/09/25 01:52 Home Medications Medication Instructions Recorded Confirmed Type gabapentin 300 mg capsule 300 mg PO TID 02/09/25 02/09/25 History metformin 500 mg tablet 500 mg PO BIDM 02/09/25 02/09/25 History Patient History Social History Smoking Status: Current every day smoker Tobacco Type: Cigarettes Second Hand Exposure: No; Do You Dip or Chew Tobacco: No; Tobacco Cessation Education Requested by Patient: No Hx Alcohol Use: No Hx Substance Use: Yes Last Used Substance: Unknown Preferred Language: Spanish Ecologist Technician Required: No Beliefs That Will Affect Care: None Current Living Situation: Homeless Other Information That Helps Us Care for You: No Feels Safe at Home: Yes Physical Exam Vital Signs (Past 24 Hours): Last Vital Signs Temp 36.6 C 02/09/25 11:51 Pulse 74 02/09/25 11:51 Resp 16 11/13/25 11:51 BP 103/63 02/09/25 11:51 Pulse Ox 98 02/09/25 11:51 O2 Del Method Room Air 02/09/25 11:51 O2 Flow Rate 2 02/09/25 02:00 Coding Level of Care Code 71499 IN/OBS CONSULT LVL 4,60M Diagnoses Altered mental state R41.82 Type 2 diabetes mellitus E11.9
[2025-02-09] MEDS: D5W AND LACTATED RINGERS 1,000 ML IV SCH (12:23)
[2025-02-09] MEDS: INSULIN ASPART PER UNIT CHARGE SC SCH (13:01)
--- NOTE | 2025-02-09 14:22 | Electroencephalogram ---
EEG Procedure Note Date of Service February 09, 2025 Start / End Times Start Time: 1342 End Time: [address] Arias History 49-year-old history of seizures currently with episode of altered responsiveness Home Medication List Medication Instructions Recorded Confirmed Type gabapentin 300 mg capsule 300 mg PO TID 02/09/25 02/09/25 History metformin 500 mg tablet 500 mg PO BIDM 02/09/25 02/09/25 History Inpatient Medication List Dextrose/Lactated Ringer's (D5w And Lactated Ringers) 1,000 mls @ 125 mls/hr IV .Q8H ROZINA Stop: 02/12/25 10:22 Last Admin: 02/09/25 12:23 Dose: 125 mls/hr Documented By: CRISTÓBAL Insulin Aspart (Insulin Aspart Per Unit Charge) 0 units SC ACHS ROZINA Stop: 03/11/25 11:29 Last Admin: 02/09/25 13:01 Dose: 4 units Documented By: CRISTÓBAL Co-signed By: JACKIE Discontinued Medications Sodium Chloride (Nss) 1,000 mls @ 999 mls/hr IV .Q1H1M ONE Stop: 02/09/25 02:10 Last Infusion: 02/09/25 03:06 Dose: Infused Documented By: [facility] Admin: 02/09/25 01:40 Dose: 999 mls/hr Documented By: JOSE Sodium Chloride (Nss) 1,000 mls @ 999 mls/hr IV .Q1H1M ONE Stop: 02/09/25 04:18 Last Infusion: 02/09/25 04:24 Dose: Infused Documented By: [facility] Admin: 02/09/25 03:21 Dose: 999 mls/hr Documented By: JOSE Thiamine HCl 500 mg/ Sodium (Chloride) 55 mls @ 210 mls/hr IV ONE ONE Stop: 02/09/25 09:35 Last Infusion: 02/09/25 12:27 Dose: Infused Documented By: Admin: 02/09/25 12:01 Dose: 210 mls/hr Documented By: CRISTÓBAL Ioversol (Optiray 320 125ml) 112 ml IV ONCE ONE Stop: 02/09/25 08:21 Last Admin: 02/09/25 08:21 Dose: 112 ml Documented By: FANNY Description This is a 21 electrode EEG with a single channel dedicated to limited EKG. The electrodes were placed in accordance with the International 10-20 system. Interpretation The predominant background activity consists of an irregular small amplitude 8 Hz activity (30 V) admixed with higher amplitude slower activity from 4 to 6 Hz bilaterally in the posterior head region spreading anteriorly. This was diffuse throughout the recording alternating for several seconds of 8 Hz activity and multiple seconds of irregular 4 to 6 Hz activity. Activation procedures did not show attenuation. Photic stimulation was performed and elicited no change in the background activity and no abnormal responses were seen. Hyperventilation was not performed. There was a periodic generalized spike seen every 5 seconds throughout the recording. This typically correlates with IV artifact. However, there were a few instances of some sharply contoured waveforms/spikes emanating from F4 and T6 independent of these IV artifacts problems. Otherwise, a mild to moderate amount of muscle and movement artifact activity contaminated the recording. Throughout the recording, no other focal slowing or abnormal activity was seen. The patient entered the drowsy state with no further activation. The episodes of sleep were not recorded. In summary, this EEG was abnormal during wakefulness and drowsiness, as noted by some mild to moderate generalized slowing of background activities and a few sharp waves/spikes emanating from the right frontotemporal head region without any clinical accompaniment. Clinical Correlation The right frontotemporal sharp waves/spikes are theoretically potentially epileptogenic and may indicate an underlying tendency to seizures. The mild to moderate slowing is consistent with encephalopathy which could be due to a wide variety of causes. clinical correlation is required. [facility] EEG Procedure Codes Indication for Procedure (1) History of seizures: (2) Altered mental state: Neurology Neurology: 47306 EEG include record awake & drowsy
[2025-02-09] MEDS: POT PHOSPHATE MONOBASIC W/ SOD TAB PO SCH (17:41)
[2025-02-09] MEDS: THIAMINE HCL 500 MG in SODIUM CHLORIDE 0.9% 50 ML IV SCH (17:42)
[2025-02-09] MEDS: ENOXAPARIN INJ 40 MG/0.4 ML SYR SQ SCH (21:33)
[2025-02-09] MEDS: GADOBUTROL 65ML VIAL IV ONE (23:31)
--- NOTE | 2025-02-10 03:17 | Magnetic Resonance Report ---
Exam(s): MRI HEAD W/WO Contrast IV Amt: 6.5ml gadavist EXAM: MR Head Without and With Intravenous Contrast CLINICAL HISTORY: Reason for exam: possible seizure on EEG. OTHER: Other Notes: possible seizure seen on eeg TBI 6 years ago 6.5ml gadavist injected, no adverse events TECHNIQUE: Magnetic resonance images of the head/brain without and with intravenous contrast in multiple planes. CONTRAST: Patient received 6.5ml gadavist of IV contrast COMPARISON: Prior head CT from February 09, 2025 FINDINGS: Brain: There is a remote ischemic injury of the right cerebellum. There remote injuries of the globus pallidus. No mass. No hemorrhage. No acute infarct. The flow voids at the base the brain are intact. No evidence of abnormal enhancement. The dural venous sinuses are patent. No evidence of mesial temporal sclerosis, cortical dysplasia or heterotopic springer matter. Ventricles: Unremarkable. No ventriculomegaly. Bones/joints: There is loss of normal T1 bright bone marrow signal within the proximal cervical spine. Prominent cervical lymph nodes. No acute fracture. Sinuses: Chronic maxillary and ethmoid sinusitis. No acute sinusitis. Mastoid air cells: There is a small amount of fluid in the right mastoid air cells.. No mastoid effusion. Orbits: Unremarkable as visualized. IMPRESSION: No evidence of acute intracranial pathology. Remote injuries of the globi pallidi concerning for remote carbon monoxide injury and may represent the nidus for patient's seizure activity. Electronically signed by: Milka Cox MD 02/10/25 03:15 AM
[2025-02-10 07:20] LABS: Hematocrit (blood only) 33.5 % (42.0-52.0); Hemoglobin 11.9 g/dL (14.0-18.0); Immature Granulocytes # (auto) 0.01 K/uL (0.01-0.20); Immature Granulocytes % (auto) 0.1 %; Mean Corpuscular Hemoglobin 31.1 pg (25.0-34.0); Mean Corpuscular Volume 87.5 fL (80.0-100.0); Platelet Count 188 K/uL (130-400); RDW Standard Deviation 41.0 fL (36.4-46.3); Red Blood Count 3.83 M/uL (4.70-6.10); White Blood Count 7.08 K/ul (4.8-10.8)
[2025-02-10 07:46] LABS: Alanine Aminotransferase 33.0 U/L (7-52); Albumin Globulin Ratio 1.0 (0.9-2); Albumin Level 3.2 gm/dl (3.4-5.0); Alkaline Phosphatase 39.0 U/L (34-104); Anion Gap 5.0 (3-11); Bilirubin,Total 0.3 mg/dl (0.2-1.0); Blood Urea Nitrogen 20.0 mg/dl (6-23); Calcium 8.6 mg/dl (8.6-10.3); Carbon Dioxide 27.0 mmol/L (21-32); Chloride 106.0 mmol/L (98-107); Creatinine Clr Calc Pharmacy 149.4 ml/min; Globulin 3.1 gm/dl (2.5-4.0); Glucose 194.0 mg/dl (70-99(Fasting)); Magnesium 1.8 mg/dl (1.7-2.4); Potassium 3.7 mmol/L (3.5-5.1); Sodium 138.0 mmol/L (136-145); Total Protein 6.3 gm/dl (6.0-8.3)
[2025-02-10 08:20] LABS: Hemoglobin A1C 7.6 % (4.5-5.6)
[2025-02-10] MEDS: LANTUS PER UNIT CHARGE SQ SCH (09:34)
--- NOTE | 2025-02-10 09:41 | Electrocardiogram Report ---
Test Reason : Blood Pressure : */* mmHG Vent. Rate : 81 BPM Atrial Rate : 81 BPM P-R Int : 132 ms QRS Dur : 90 ms QT Int : 386 ms P-R-T Axes : 81 86 77 degrees QTcB Int : 448 ms Normal sinus rhythm Normal ECG No previous ECGs available Confirmed by Mike Waters ([id number]) on 02/10/2025 9:41:38 AM Referred By: REFERRED SELF Confirmed By: Mike Waters
[2025-02-10 11:19] LABS: Creatine Kinase 286.0 U/L (30-223)
--- NOTE | 2025-02-10 12:57 | Hospitalist Progress Note ---
Date of Service February 10, 2025 Assessment & Plan (1) Type 2 diabetes mellitus: (2) Altered mental state: (3) Rhabdomyolysis: (4) Elevated LFTs: (5) Leukocytosis: (6) Hypophosphatemia: Plan 49 year old male brought to the ER by police due to altered mental state found wandering [place] the [place] [address] #Altered mental state / possible seizures Unclear baseline but clearly wandering down the middle [place] [address] unlikely to be baseline Ammonia normal, glucose normal, no infection found, urine drug screen negative, alcohol negative CT head no acute pathology EEG and Brain MRI concerning for possible seizures - discussed with Dr Snow yesterday and recommended Keppra based on EEG which he has been on in the past Psychiatry unable to fully assess patient yesterday due to lethargy, hopeful will have more insight today Continue high dose thiamine although suspect Wernicke's less likely today #Peripheral neuropathy B12 level with AM labs Restart gabapentin 600mg TID #Hypophosphatemia At risk for refeeding, continue oral supplementation and remeasure in AM #Mild rhabdomyolysis CK improving with IV fluids, ok to stop these today and encourage oral fluid #Elevated WBC Resolved, suspected stress demargination #Elevated anion gap / dehydration Resolved with D5W #Severe protein calorie malnutrition Appreciate dietary consult, will add MVI #Elevated LFTs Resolving Anaplasma smear negative, lyme negative #Type 2 diabetes mellitus HbA1C 7.6 Add Lantus 10 units daily Continue Novolog: --Goal BSG Range: Low 110 mg/dL, High 140 mg/dL --Correction Factor: 45 mg/dL/unit --Carbohydrate ratio = 15 g/unit --BSGs ACHS if eating, q6h if npo VTE Prophylaxis - Lovenox 40mg SQ HS Disposition - stable for transfer to med/surg, no arrhythmias on telemetry Admission and Anticipated Discharge Date Admission Date: February 09, 2025 Subjective Feeling improved today but still no idea how he ended up walking [address] Reports he has somewhere to stay after discharge Wishes for me to prescribe lorazepam for his prior traumatic brain injury and reports he lost a prescription for this although no PDMP report for any prescriptions for benzodiazepines and discussed this is not a normal medication to give for a traumatic brain injury. Reports 300mg gabapentin was not helping his peripheral neuropathy but was doing better on 600mg TID Physical Exam Constitutional: well developed; + not well nourished and no acute distress Respiratory: normal respiratory effort, lungs clear to auscultation Cardiovascular: RRR, no murmur, no edema Skin: no rashes, warm and dry Neurologic: moves all extremities and awake; not confused Psychiatric: A+Ox3, euthymic affect Results & Data Results & Data Vital Signs (Past 12 Hours) Vital Signs Temp Pulse Pulse Resp BP BP Pulse Ox 02/10/25 11:21 36.9 C 69 20 108/68 98 02/10/25 08:11 02/10/25 07:45 36.7 C 68 18 121/72 98 02/10/25 06:04 71 02/10/25 03:12 36.7 C 67 16 119/67 99 O2 Del Method 02/10/25 11:21 Room Air 02/10/25 08:11 Room Air 02/10/25 07:45 Room Air 02/10/25 06:04 02/10/25 03:12 Room Air PG Care Time/CCT Total # of Minutes Spent Total Time Spent with Patient: Total time spent is greater than 50% in coordination of care (as documented) at patient's floor/unit and/or counseling patient: Coding Level of Care Code 68251 SUB INP/OBS CARE 2/35MIN Diagnoses Type 2 diabetes mellitus E11.9 Altered mental state R41.82 Rhabdomyolysis M62.82 Elevated LFTs R79.89 Leukocytosis D72.829 Hypophosphatemia E83.39
[2025-02-10] MEDS: CEROVITE ADV FORMULA TAB PO SCH (13:36)
[2025-02-10] MEDS: POT PHOSPHATE MONOBASIC W/ SOD TAB PO SCH (13:36)
[2025-02-10] MEDS: GABAPENTIN 600 MG TAB PO SCH (13:36)
[2025-02-10] MEDS: levETIRAcetam 500 MG TAB PO SCH (20:06)
[2025-02-11 06:51] LABS: Alanine Aminotransferase 44.0 U/L (7-52); Albumin Globulin Ratio 1.1 (0.9-2); Albumin Level 3.6 gm/dl (3.4-5.0); Alkaline Phosphatase 41.0 U/L (34-104); Anion Gap 7.0 (3-11); Bilirubin,Total 0.4 mg/dl (0.2-1.0); Blood Urea Nitrogen 14.0 mg/dl (6-23); Calcium 9.5 mg/dl (8.6-10.3); Carbon Dioxide 28.0 mmol/L (21-32); Chloride 105.0 mmol/L (98-107); Creatinine Clr Calc Pharmacy 120.8 ml/min; Globulin 3.4 gm/dl (2.5-4.0); Glucose 102.0 mg/dl (70-99(Fasting)); Potassium 3.9 mmol/L (3.5-5.1); Sodium 140.0 mmol/L (136-145); Total Protein 7.0 gm/dl (6.0-8.3)
[2025-02-11] MEDS: LANTUS PER UNIT CHARGE SQ SCH (09:13)
--- NOTE | 2025-02-11 14:13 | Hospitalist Progress Note ---
Date of Service February 11, 2025 Assessment & Plan (1) Type 2 diabetes mellitus: (2) Altered mental state: (3) Rhabdomyolysis: (4) Elevated LFTs: (5) Leukocytosis: (6) Hypophosphatemia: Plan 49 year old male brought to the ER by police due to altered mental state found wandering in the [place] [address] #Altered mental state / possible seizures Ammonia normal, glucose normal, no infection found, urine drug screen negative, alcohol negative CT head no acute pathology EEG and Brain MRI concerning for possible seizures - discussed with Dr Snow and recommended Keppra 500mg PO BID Psychiatry unable to fully assess patient 02/09, contacted today for re-edgar luation Continue thiamine 100mg PO daily #Peripheral neuropathy B12 level with AM labs Restarted gabapentin 600mg TID #Hypophosphatemia Resolved #Mild rhabdomyolysis Resolved #Elevated WBC Resolved, suspected stress demargination #Elevated anion gap / dehydration Resolved with D5W #Severe protein calorie malnutrition Appreciate dietary consult, continue MVI #Elevated LFTs Resolving Anaplasma smear negative, lyme negative #Type 2 diabetes mellitus HbA1C 7.6 Reduce Lantus to 5 units daily Continue Novolog: --Goal BSG Range: Low 110 mg/dL, High 140 mg/dL --Correction Factor: 45 mg/dL/unit --Carbohydrate ratio = 15 g/unit --BSGs ACHS if eating, q6h if npo VTE Prophylaxis - Lovenox 40mg SQ HS Disposition - continue on med/surg, medically stable pending psychiatry input Admission and Anticipated Discharge Date Admission Date: February 10, 2025 Subjective Unable to tell me the number for his father or how he will contact him to pick him up. No pain or concerns from the patient. Reportedly eating well. Physical Exam Constitutional: + not well nourished Respiratory: normal respiratory effort, lungs clear to auscultation Cardiovascular: RRR, no murmur, no edema Gastrointestinal (Abdomen): normal bowel sounds, soft, nontender, no hepatosplenomegaly Results & Data Results & Data Vital Signs (Past 12 Hours) Vital Signs Temp Pulse Resp BP Pulse Ox O2 Del Method 02/11/25 10:01 Room Air 02/11/25 07:54 36.4 C L 68 17 118/76 94 Room Air PG Care Time/CCT Total # of Minutes Spent Total Time Spent with Patient: Total time spent is greater than 50% in coordination of care (as documented) at patient's floor/unit and/or counseling patient: Coding Level of Care Code 97067 SUB INP/OBS CARE 235MIN Diagnoses Type 2 diabetes mellitus E11.9 Altered mental state R41.82 Rhabdomyolysis M62.82 Elevated LFTs R79.89 Leukocytosis D72.829 Hypophosphatemia E83.39
--- NOTE | 2025-02-11 16:55 | Psychiatric Consultation ---
Date of Consultation February 11, 2025 Impression / Recommendations Impression JEMAL CORDERO is a 49-year-old M with unclear psychiatric history. The MRI done during this admission showed remote injuries of the globi pallidi concerning for remote carbon monoxide injury and may represent the nidus for patient's seizure activity. Is unclear when this CO intoxication happened and if he was connected to mental health issues or accidental. Patient unable to provide information. No available collateral informants. He denied history of substance use and UDS was negative on admission. There is no evidence of agitation, aggressive behavior, or self-injurious behavior. Overall, I spent a total of 60 minutes with this case including review of chart records, review of labwork, direct evaluation of the patient at bedside, and documentation in the electronic health record. (1) Altered mental state: Plan No psychiatric medications indicated at this time may continue to use Haldol. For as needed in case of agitation or psychosis. Psychiatry will continue to follow. Psych History Identifying Data JEMAL CORDERO is a 49-year-old M who was admitted on 02/10/25 16:31 due to altered mental status. Chief Complaint "Head trauma". History of Present Illness According to previous psychiatric economic consultant jemal was brought to the emergency department by state police [place]. Per hospitalist admission H&P he cannot recall how he got on the highway or when he last ate or drank. He fell asleep easily and reported having been at [facility] but appears he left without being seen. Review of prior medications notable for lithium and risperidone on Psychiatric hospital medication list and external pharmacy review notable for history of Haldol and mirtazapine prescribed by outpatient psychiatry in the past. Also previous history of citalopram and prazosin scrips. He denied recent substance use on admission though did have a prior prescription of Sublocade. On February 09 he is very sedated and not able to participate in the interview. Today he is more alert; however, still not able to participate in evaluation due to difficulty speaking. Patient appears to understand the questions but is unable to verbalize his answers. He is able to answer yes/no questions for the most part but at times has difficulty coming up with the answer as if feeling ambivalent about the correct answer. He has what appears to be word finding difficulties and possibly thought blocking. Patient stated he had "head injury" but was unable to elaborate. He answered "no" when asked if he was using any drugs. He answered "yes" when asked if he was feeling sad. Social history notable for being currently unhoused, reported he has no family. Allergies Allergy/AdvReac Type Severity Reaction Status Date / Time No Known Allergies Allergy Verified 02/09/25 01:52 Home Medications Medication Instructions Recorded Confirmed Type gabapentin 300 mg capsule 300 mg PO TID 02/09/25 02/09/25 History metformin 500 mg tablet 500 mg PO BIDM 02/09/25 02/09/25 History Patient History Social History Smoking Status: Current every day smoker Tobacco Type: Cigarettes Second Hand Exposure: No; Do You Dip or Chew Tobacco: No; Tobacco Cessation Education Requested by Patient: No Hx Alcohol Use: No Hx Substance Use: Yes Last Used Substance: Unknown Preferred Language: Ukrainian Communication Ability: Effective Director Equipment Required: No Beliefs That Will Affect Care: None Current Living Situation: Homeless Other Information That Helps Us Care for You: No Feels Safe at Home: Yes Physical Exam Vital Signs (Past 24 Hours): Last Vital Signs Temp 36.5 C 02/11/25 15:38 Pulse 59 L 02/11/25 15:38 Resp 18 02/11/25 15:38 BP 128/70 02/11/25 15:38 Pulse Ox 96 02/11/25 15:38 O2 Del Method Room Air 02/11/25 15:38 O2 Flow Rate 2 02/09/25 02:00 Review of Systems Unable to fully assess due to patient's inability to answer questions Results & Data (PSY) Diagnostic Findings Altered mental status unknown origin Medications Administered Enoxaparin Sodium (Enoxaparin Inj 40 Mg/0.4 Ml Syr) 40 mg SQ QPM ROZINA Stop: 03/11/25 20:59 Last Admin: 02/10/25 20:07 Dose: 40 mg Documented By: Admin: 02/09/25 21:33 Dose: 40 mg Documented By: [facility] Gabapentin (Gabapentin 600 Mg Tab) 600 mg PO TID ROZINA Stop: 03/12/25 13:59 Last Admin: 02/11/25 13:27 Dose: 600 mg Documented By: MECHANICAL PROJECT MANAGER Admin: 02/11/25 08:56 Dose: 600 mg Documented By: MECHANICAL PROJECT MANAGER Admin: 02/10/25 20:06 Dose: 600 mg Documented By: Admin: 02/10/25 13:36 Dose: 600 mg Documented By: ALEXANDRIA Insulin Aspart (Insulin Aspart Per Unit Charge) 0 units SC ACHS ROZINA Stop: 03/11/25 11:29 Last Admin: 02/11/25 13:26 Dose: 2 units Documented By: ELIA Co-signed By: PRASHANT Admin: 02/11/25 09:13 Dose: 6 units Documented By: ELIA Co-signed By: reyes Admin: 02/10/25 20:18 Dose: Not Given Documented By: MARY Co-signed By: cristopher Admin: 02/10/25 18:16 Dose: 4 units Documented By: ALEXANDRIA Co-signed By: ROSE Admin: 02/10/25 13:36 Dose: 4 units Documented By: ALEXANDRIA Co-signed By: JACKIE Admin: 02/10/25 09:29 Dose: 7 units Documented By: ALEXANDRIA Co-signed By: DORIAN Admin: 02/09/25 21:34 Dose: 1 units Documented By: zhen Co-signed By: VINH Admin: 02/09/25 17:56 Dose: 4 units Documented By: CRISTÓBAL Co-signed By: JACKIE Admin: 02/09/25 13:01 Dose: 4 units Documented By: CRISTÓBAL Co-signed By: JACKIE Insulin Glargine (Lantus Per Unit Charge) 5 units SQ QAM [facility] Stop: 03/13/25 08:59 Last Admin: 02/11/25 09:13 Dose: 5 units Documented By: ELIA Co-signed By: reyes Levetiracetam (Levetiracetam 500 Mg Tab) 500 mg PO BID ROZINA Stop: 03/12/25 20:59 Last Admin: 02/11/25 08:56 Dose: 500 mg Documented By: Admin: 02/10/25 20:06 Dose: 500 mg Documented By: MARY Multivitamins/Minerals (Cerovite Adv Formula Tab) 1 tab PO QAM ROZINA Stop: 03/12/25 13:14 Last Admin: 02/11/25 08:56 Dose: 1 tab Documented By: Admin: 02/10/25 13:36 Dose: 1 tab Documented By: ALEXANDRIA C[place] [address] Office/OBS Consult Lvl 1 Patient Type Established History Problem Focused Exam Problem Focused Medical Decision Making Straight Forward Diagnoses Altered mental state R41.82 Time Spent (min) 60
[2025-02-12 06:15] LABS: Creatinine Clr Calc Pharmacy 113.0 ml/min
[2025-02-12 07:08] VITALS: RESP 16
[2025-02-12] MEDS: THIAMINE HCL 100 MG TAB PO SCH (08:28)
[2025-02-12 11:24] VITALS: BP 132/84; PULSE 80; TEMP 98.6; O2SAT 96
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
== END 2025-02-12 15:10 | disposition home or self-care (01) | DRG 100 ==
LOC: SUATTDRO → 2N 00:54 → ED 00:54 → 2N 09:30
DX: E83.39 Other disorders of phosphorus metabolism; E88.89 Other specified metabolic disorders; R79.89 Other specified abnormal findings of blood chemistry; Z79.84 Long term (current) use of oral hypoglycemic drugs; D72.829 Elevated white blood cell count, unspecified; E11.40 Type 2 diabetes mellitus with diabetic neuropathy, unspecified; Z79.899 Other long term (current) drug therapy; Z68.20 Body mass index [BMI] 20.0-20.9, adult; E43 Unspecified severe protein-calorie malnutrition; F17.210 Nicotine dependence, cigarettes, uncomplicated; R56.9 Unspecified convulsions; M62.82 Rhabdomyolysis; E86.0 Dehydration